=== PATIENT | male | born 1995 | race Caucasian/White ===

== ENCOUNTER 2018-08-01 12:32 | Emergency (ER) | payer MEDICAID ==
[2018-08-01] MEDS ORDERED: VALACYCLOVIR HCL 500 MG TABLET PO ONE ×2 (13:17→16:00)
[2018-08-01] MEDS ORDERED: HYDROCODONE/ACETAMINOPHEN 7.5-325 MG TABLET PO ONE ×2 (13:18→16:00)
[2018-08-01] MEDS ORDERED: MUPIROCIN 2% OINTMENT 22 GM TP ONE ×2 (13:18→16:00)
--- NOTE | 2018-08-01 13:33 | ER Document Report ---
ED Medical Screen (RME) - General Chief Complaint: Rash Stated Complaint: RASH, SIDE PAIN Time Seen by Provider: 08/01/18 13:12 Mode of Arrival: Ambulatory Information source: Patient Notes: Patient complained of right chest wall rash right upper extremity rash x 1 week. He denies history of HIV or being immunocompromised. He denies any other symptoms. Patient also denies fever. I have greeted and performed a rapid initial assessment of this patient. A comprehensive ED assessment and evaluation of the patient, analysis of test results and completion of the medical decision making process will be conducted by additional ED providers. TRAVEL OUTSIDE OF THE [place] IN LAST 30 DAYS: No - Related Data Allergies/Adverse Reactions: Penicillins Allergy (Verified 08/01/18 12:33) Past Medical History - Social History Chew tobacco use (# tins/day): No Frequency of alcohol use: Occasional Drug Abuse: None Renal/ Medical History: Denies: Hx Peritoneal Dialysis Physical Exam - Vital signs Vitals: Temp Pulse Resp BP Pulse Ox 97.9 F 96 18 141/73 H 97 08/01/18 12:41 08/01/18 12:41 08/01/18 12:41 08/01/18 12:41 08/01/18 12:41 Course - Vital Signs Vital signs: Temp Pulse Resp BP Pulse Ox 97.9 F 96 18 141/73 H 97 08/01/18 12:41 08/01/18 12:41 08/01/18 12:41 08/01/18 12:41 08/01/18 12:41
[2018-08-01 14:24] LABS: ABSOLUTE BASOPHILS # (AUTO) 0.1 10^3/uL (0.0-0.2); ABSOLUTE EOSINOPHILS # (AUTO) 0.6 10^3/uL (0.0-0.6); ABSOLUTE LYMPHOCYTES (AUTO) 1.9 10^3/uL (0.5-4.7); ABSOLUTE MONOCYTES (AUTO) 0.6 10^3/uL (0.1-1.4); ABSOLUTE NEUT (AUTO) 3.6 10^3/uL (1.7-8.2); BASOPHILS % (AUTO) 0.9 % (0-2); EOSINOPHILS % (AUTO) 8.8 % (0-6); HEMATOCRIT 42.2 % (37.9-51.0); HEMOGLOBIN 14.4 g/dL (13.5-17.0); LYMPHOCYTES % (AUTO) 27.6 % (13-45); MEAN CORPUSCULAR HEMOGLOBIN 27.9 pg (27.0-33.4); MEAN CORPUSCULAR HGB CONC 34.2 g/dL (32.0-36.0); MEAN CORPUSCULAR VOLUME 82 fl (80-97); MONOCYTES % (AUTO) 9.3 % (3-13); PLATELET COUNT 263 10^3/uL (150-450); RED BLOOD COUNT 5.18 10^6/uL (4.35-5.55); RED CELL DISTRIBUTION WIDTH 13.7 % (11.5-14.0); SEGMENTED NEUTROPHILS % (AUTO) 53.4 % (42-78); TOTAL CELLS COUNTED % (AUTO) 100 %; WHITE BLOOD COUNT 6.8 10^3/uL (4.0-10.5)
[2018-08-01 14:41] LABS: ALANINE AMINOTRANSFERASE 19 U/L (21-72); ALBUMIN 4.3 g/dL (3.5-5.0); ALKALINE PHOSPHATASE 51 U/L (38-126); ANION GAP 8 (5-19); ASPARTATE AMINO TRANSFERASE 22 U/L (17-59); BILIRUBIN,DIRECT 0.4 mg/dL (0.0-0.4); BILIRUBIN,TOTAL 0.8 mg/dL (0.2-1.3); BLOOD UREA NITROGEN 8 mg/dL (7-20); CALCIUM 9.8 mg/dL (8.4-10.2); CARBON DIOXIDE 31 mmol/L (22-30); CHLORIDE 103 mmol/L (98-107); GLUCOSE 91 mg/dL (75-110); POTASSIUM 4.6 mmol/L (3.6-5.0); TOTAL PROTEIN 7.4 g/dL (6.3-8.2)
[2018-08-01] MEDS ORDERED: CLINDAMYCIN HCL 150 MG CAPSULE PO ONE (15:25)
[2018-08-01] MEDS ORDERED: HYDROCODONE/ACETAMINOPHEN 5-325 MG (6 TAB/ER DISP) PO PRN (15:31)
--- NOTE | 2018-08-01 15:31 | ER Document Report ---
HPI - HPI Patient complains to provider of: Skin rash Onset: Last week Onset/Duration: Gradual Quality of pain: Burning Pain Level: 3 Context: Patient complains of pruritic skin rash that has become painful. Patient states he has had a rash for the past week. Patient states that he has had similar rash on 2 prior occasions over the past 6 weeks. Patient does work in [employer]. Patient denies any fever. Patient denies any history of HIV and states that he was tested within the past year. Associated Symptoms: Other - Skin rash. denies: Fever, Headache Exacerbated by: Denies Relieved by: Denies Similar symptoms previously: Yes Recently seen / treated by doctor: No - ROS ROS below otherwise negative: Yes Systems Reviewed and Negative: Yes All other systems reviewed and negative - CONSTITUTIONAL Constitutional: DENIES: Fever, Chills - NEURO Neurology: DENIES: Headache - GASTROINTESTINAL Gastrointestinal: DENIES: Nausea - MUSCULOSKELETAL Musculoskeletal: REPORTS: Extremity pain - DERM Skin Color: Erythema Skin Problems: Rash Past Medical History - General Information source: Patient - Social History Smoking Status: Current Every Day Smoker Chew tobacco use (# tins/day): No Frequency of alcohol use: Occasional Drug Abuse: None Occupation: [employer] Family History: Reviewed & Not Pertinent Patient has suicidal ideation: No Patient has homicidal ideation: No - Medical History Medical History: Negative Renal/ Medical History: Denies: Hx Peritoneal Dialysis Past Surgical History: Reports: Hx Adenoidectomy, Hx Appendectomy, Hx Cholecystectomy, Hx Tonsillectomy Vertical Provider Document - CONSTITUTIONAL Agree With Documented VS: Yes Exam Limitations: No Limitations General Appearance: WD/WN, No Apparent Distress - INFECTION CONTROL TRAVEL OUTSIDE OF THE [place] IN LAST 30 DAYS: No - HEENT HEENT: Atraumatic, Normocephalic - NECK Neck: Normal Inspection, Supple - RESPIRATORY Respiratory: Breath Sounds Normal, No Respiratory Distress - CARDIOVASCULAR Cardiovascular: Regular Rate, Regular Rhythm - GI/ABDOMEN Gastrointestinal: Abdomen Soft, Abdomen Non-Tender, No Organomegaly - BACK Back: Normal Inspection - MUSCULOSKELETAL/EXTREMETIES Musculoskeletal/Extremeties: MAEW - NEURO Level of Consciousness: Awake, Alert, Appropriate - DERM Integumentary: Warm, Dry, Rash - Erythematous scaling, maculopapular rash to right lateral trunk area bilateral upper extremities. Patient with surrounding erythema to rash to right side of trunk. Course - Re-evaluation Re-evalutation: 08/01/18 15:[address] May to regarding patient presentation. Dr. May did evaluate patient in triage area, examining patient skin rash as well as tender lump to right groin area. Recommends treating patient with Valtrex, clindamycin and Bactroban for shingles with cellulitis. - Vital Signs Vital signs: Temp Pulse Resp BP Pulse Ox 97.9 F 96 18 141/73 H 97 08/01/18 12:41 08/01/18 12:41 08/01/18 12:41 08/01/18 12:41 08/01/18 12:41 - Laboratory Result Diagrams: 08/01/18 14:05 08/01/18 14:05 Laboratory results interpreted by me: 08/01/18 08/01/18 14:05 14:05 Eosinophils % 8.8 H Carbon Dioxide 31 H ALT 19 L 08/01/18 15:45 Labs- Entire Visit 08/01/18 08/01/18 14:05 14:05 WBC 6.8 RBC 5.18 Hgb 14.4 Hct 42.2 MCV 82 MCH 27.9 MCHC 34.2 RDW 13.7 Plt Count 263 Seg Neutrophils % 53.4 Lymphocytes % 27.6 Monocytes % 9.3 Eosinophils % 8.8 H Basophils % 0.9 Absolute Neutrophils 3.6 Absolute Lymphocytes 1.9 Absolute Monocytes 0.6 Absolute Eosinophils 0.6 Absolute Basophils 0.1 Sodium 142.0 Potassium 4.6 Chloride 103 Carbon Dioxide 31 H Anion Gap 8 BUN 8 Creatinine 0.77 Est GFR ( Amer) > 60 Est GFR (Non-Af Amer) > 60 Glucose 91 Calcium 9.8 Total Bilirubin 0.8 Direct Bilirubin 0.4 Neonat Total Bilirubin Not Reportable Neonat Direct Bilirubin Not Reportable Neonat Indirect Bili Not Reportable AST 22 ALT 19 L Alkaline Phosphatase 51 Total Protein 7.4 Albumin 4.3 Discharge - Discharge Clinical Impression: Shingles Qualifiers: Herpes zoster complications: with other complications Qualified Code(s): B02.8 - Zoster with other complications Cellulitis Qualifiers: Site of cellulitis: unspecified site Qualified Code(s): L03.90 - Cellulitis, unspecified Condition: Stable Disposition: HOME, SELF-CARE Instructions: Bactroban Ointment ([facility]), Cellulitis ([facility]), Clindamycin ([facility]), Shingles ([facility]) Additional Instructions: Return immediately for any new or worsening symptoms Followup with your primary care provider, call tomorrow to make a followup appointment Prescriptions: Clindamycin HCl [Cleocin Hcl] 300 mg PO QID #28 capsule Clindamycin HCl [Cleocin Hcl] 300 mg PO QID #12 capsule Mupirocin [Bactroban 2% Ointment 22 gm] 1 applic TP TID #22 gm Valacyclovir HCl [Valtrex] 1,000 mg PO TID #9 tablet Valacyclovir HCl [Valacyclovir] 1,000 mg PO TID #9 tablet Referrals: CHELSIE KILGORE MD [Primary Care Provider] - Follow up in 3-5 days
[2018-08-01 16:07] VITALS: BP 123/89
== END 2018-08-01 16:20 | disposition home or self-care (01) ==
LOC: ER 12:32
DX: B02.8 Zoster with other complications (principal); L03.90 Cellulitis, unspecified; B20 Human immunodeficiency virus [HIV] disease; F17.200 Nicotine dependence, unspecified, uncomplicated
CPT/HCPCS: 99283; 36415; 85025; 80053; J3490 ×3

== ENCOUNTER 2020-03-20 21:12 | Emergency (ER) | payer OTHER, MEDICAID ==
[2020-03-20] MEDS ORDERED: ACETAMINOPHEN 325 MG TABLET PO ONE (21:29)
--- NOTE | 2020-03-20 22:33 | RADIOLOGY REPORT (SQ) ---
EXAM DESCRIPTION: XR TIBIA FIBULA 2 VIEWS COMPLETED DATE/TME: 03/20/2020 21:26 CLINICAL HISTORY: 25 years, Male, R/O FX COMPARISON: None. NUMBER OF VIEWS: 4 TECHNIQUE: Frontal and lateral radiographs of the left lower leg were acquired. LIMITATIONS: None. FINDINGS: Visualized osseous structures are normal in appearance. Joint spaces are well-maintained. No acute fracture or dislocation is evident. IMPRESSION: No acute osseous anomaly. copyright 2010 [employer]- All Rights Reserved
[2020-03-21] MEDS ORDERED: ONDANSETRON 4 MG TAB.RAPDIS PO ONE (01:28)
[2020-03-21] MEDS ORDERED: OXYCODONE HCL IR 5 MG TABLET PO ONE (01:28)
[2020-03-21] MEDS ORDERED: IBUPROFEN 600 MG TABLET PO ONE (01:28)
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
[2020-03-21 01:53] VITALS: BP 147/83
== END 2020-03-21 01:54 | disposition home or self-care (01) ==
LOC: ER 21:12
DX: S89.92XA Unspecified injury of left lower leg, initial encounter (principal); S80.12XA Contusion of left lower leg, initial encounter; X58.XXXA Exposure to other specified factors, initial encounter; Y92.410 Unspecified street and highway as the place of occurrence of the external cause; Z90.49 Acquired absence of other specified parts of digestive tract
CPT/HCPCS: 99283; 73590; S0119